=== PATIENT | female | born 1990 | race American Indian/Alaskan Native ===

== ENCOUNTER 2020-11-15 05:07 | Emergency (ER) | payer MEDICAID ==
--- NOTE | 2020-11-15 06:23 | EDM.PDOCBH ---
<Cassius Lord - Last Filed: 11/15/20 06:17> ED HPI GENERAL MEDICAL PROBLEM - General Chief Complaint: Behavioral/Psych Stated Complaint: MED MISHAP Time Seen by Provider: 11/15/20 06:00 Source of Information: Reports: Patient History Limitations: Reports: No Limitations - History of Present Illness INITIAL COMMENTS - FREE TEXT/NARRATIVE: Sallie is a 29 y F, who came in because of an overdose on Trazodone.She believes she took over 12 tabs of 100 mg tablets,of her boyfriend's prescription,in an effort to hard herself. She says she was frustrated with her boyfriend,who is not working,and living off of her. She definitely had intention of suicide,as she says she wrote a suicide note. She cut her self with a sharp object on the right thigh.She has a h/o MDD,although she does not take the Meds prescribed to her,and has no stable psychiatric care. Has 3 previous admissions to a mental health facility in [facility],the last time being about 1-2 years ago. - Related Data Allergies Allergy/AdvReac Type Severity Reaction Status Date / Time No Known Allergies Allergy Verified 11/15/20 05:31 Home Meds: Home Meds NK [No Known Home Meds] 11/15/20 [History] Past Medical History Gastrointestinal History: Reports: GERD Psychiatric History: Reports: Suicide Attempt, Suicidal Ideation Social & Family History - Tobacco Use Tobacco Use Status *Q: Current Every Day Tobacco User Years of Tobacco use: 10 Packs/Tins Daily: 0.5 - Recreational Drug Use Recreational Drug Use: No ED ROS GENERAL - Review of Systems Review Of Systems: Comprehensive ROS is negative, except as noted in HPI. ED EXAM, BEHAVIORAL HEALTH - Physical Exam Exam: See Below Exam Limited By: No Limitations General Appearance: Alert, WD/WN, No Apparent Distress Eye Exam: Left Eye: EOMI, Bilateral Eye: PERRL Ears: Normal External Exam Throat/Mouth: Normal Inspection Cardiovascular: Normal Peripheral Pulses Extremities: Normal Inspection, Other (2 lacerations to the right thigh. 5 cm & 3 cm.) Neurological: Alert Psychiatric: Alert, Normal Affect, Normal Cognition, Normal Mood Skin Exam: Warm, Dry ED Add Procedures - Additional/Other Procedure(s) Procedure(s) (Free Text): I used svetlana on the 5 cm laceration,after local anesthesia. Then Dermabond on the 3 cm laceration. #1 Interpretation EKG Date: 11/15/20 Time: 05:31 Rhythm: NSR Dawson: Normal P-Wave: Present ST-T: Normal QT: Prolonged Comparison: NA - No Prior EKG Departure - Departure Disposition: DC/Tfer to Psych Hosp/Unit 65 Clinical Impression: Suicidal intent, Laceration Drug overdose Qualifiers: Encounter type: initial encounter Injury intent: intentional self-harm Qualified Code(s): T50.902A - Poisoning by unspecified drugs, medicaments and biological substances, intentional self-harm, initial encounter - Discharge Information Referrals: Steffi Valiente MD [Primary Care Provider] - Forms: ED Department Discharge Sepsis Event Note (ED) - Evaluation Sepsis Screening Result: No Definite Risk - Problem List & Annotations (1) Drug overdose SNOMED Code(s): 70804259 Code(s): T50.901A - POISONING BY UNSP DRUG/MEDS/BIOL SUBST, ACCIDENTAL, INIT Status: Acute Current Visit: Yes Qualifiers: Encounter type: initial encounter Injury intent: intentional self-harm Qualified Code(s): T50.902A - Poisoning by unspecified drugs, medicaments and biological substances, intentional self-harm, initial encounter (2) MDD (major depressive disorder) SNOMED Code(s): 032526523 Code(s): F32.9 - MAJOR DEPRESSIVE DISORDER, SINGLE EPISODE, UNSPECIFIED Status: Acute Current Visit: Yes Qualifiers: Major depression recurrence: recurrent Major depression episode severity: moderate (3) Suicidal intent SNOMED Code(s): 702206205, 940859385 Code(s): R45.851 - SUICIDAL IDEATIONS Status: Acute Current Visit: Yes (4) Laceration SNOMED Code(s): 306392029 Code(s): KZQ5671 - Status: Acute Current Visit: Yes - Problem List Review Problem List Initiated/Reviewed/Updated: Yes - Assessment/Plan Plan: I ordered CBC,CMP.TSH,ETOH,Acetaminophen and Salicylate levels.I put the lacerations together using svetlana and glue.I did consult [place] for screening and help with possible placement. <Trey Kebede - Last Filed: 11/16/20 07:07> #2 Interpretation EKG Date: 11/15/20 Time: 13:28 Rhythm: NSR Dawson: Normal P-Wave: Present QRS: Normal EKG Interpretation Comments: pt had low normal K and Mg, given KCl 20 meq PO and Mg 2 gm IV, repeat EKT with rate 85, QT 201, QTC 477 and borderline prolonged QT intervial, still nonspecific flattening of T waves diffusely with change, QTC is better #3 Interpretation EKG Date: 11/15/20 Time: 21:11 Rhythm: NSR Rate (Beats/Min): 94 Dawson: Normal P-Wave: Present QRS: Normal EKG Interpretation Comments: no change c/w previous, QT dec'd 401 to 383 now, QTc unchanged from 477 to 479 now, still nonspecific changes, no evidence of acute/ischemic changes #4 Interpretation EKG Date: 11/16/20 Time: 03:50 Rhythm: NSR Dawson: Normal P-Wave: Present QRS: Normal ST-T: Normal QT: Normal EKG Interpretation Comments: QT 427, QTc 444, no baseline artifact, SR, rate 65, still NSST change. EKG has improved after additional replacement of K and Mg. COURSE, BEHAVIORAL HEALTH COMP - Course Vital Signs: Last Vital Signs Temp 36.7 C 11/16/20 02:45 Pulse 78 11/16/20 02:45 Resp 15 11/16/20 02:45 BP 122/72 11/16/20 02:45 Pulse Ox 96 11/16/20 02:45 Orders, Labs, Meds: Active Orders 24 hr Category Date Time Status EKG Documentation Completion [RC] ASDIRECTED Care 11/15/20 11:48 Active EKG Documentation Completion [RC] ASDIRECTED Care 11/15/20 19:44 Active EKG Documentation Completion [RC] ASDIRECTED Care 11/15/20 22:58 Active EKG 12 Lead [EK] Routine Ther 11/15/20 11:47 Ordered EKG 12 Lead [EK] Routine Ther 11/15/20 19:43 Ordered EKG 12 Lead [EK] Routine Ther 11/15/20 22:56 Ordered Laboratory Tests 11/15/20 11/15/20 11/15/20 Range/Units 05:35 05:35 05:35 WBC 5.2 (3.0-10.3) x10-3/uL RBC 5.10 (3.60-5.20) x10(6)uL Hgb 13.7 (11.4-15.5) g/dL Hct 41.9 (34.2-48.2) % MCV 82.1 (76.7-100.5) fL MCH 26.8 (23.9-33.9) pg MCHC 32.7 (31.9-34.8) g/dL RDW 16.8 H (12.3-16.5) % Plt Count 310 (151-488) x10(3)uL MPV 6.3 L (7.1-12.4) fL Neut % (Auto) 52.3 (30.8-76.2) % Lymph % (Auto) 36.3 (18.4-52.1) % [place] % (Auto) 8.2 (4.4-15.7) % Eos % (Auto) 1.7 (0.6-8.1) % Baso % (Auto) 1.5 (0.2-1.5) % Neut # (Auto) 2.7 (1.5-6.3) x10-3/uL Lymph # (Auto) 1.9 (1.0-4.4) x10-3/uL [place] # (Auto) 0.4 (0.3-1.0) x10-3/uL Eos # (Auto) 0.1 (0.0-0.8) x10-3/uL Baso # (Auto) 0.1 (0.0-0.1) x10-3/uL Sodium 144 (135-145) mmol/L Potassium 3.5 (3.5-5.3) mmol/L Chloride 107 (100-110) mmol/L Carbon Dioxide 24 (21-32) mmol/L BUN 5 L (7-18) mg/dL Creatinine 0.8 (0.55-1.02) mg/dL Est Cr Clr Drug Dosing 94.21 mL/min Estimated GFR (MDRD) > 60 (>60) BUN/Creatinine Ratio 6.3 L (9-20) Glucose 113 (80-116) mg/dL Calcium 7.9 L (8.6-10.2) mg/dL Magnesium (1.8-2.5) mg/dL Total Bilirubin 0.4 (0.1-1.3) mg/dL AST 124 H (5-25) IU/L ALT 99 H (12-36) U/L Alkaline Phosphatase 130 H (56-112) IU/L Total Protein 8.1 H (6.0-8.0) g/dL Albumin 3.2 L (3.5-5.2) g/dL Globulin 4.9 g/dL Albumin/Globulin Ratio 0.7 TSH, Ultra Sensitive 2.50 (0.36-3.74) IU/mL Urine HCG, Qual (NEGATIVE) Salicylates 5.2 (<2.8) mg/dL Urine Opiates Screen (NEGATIVE) Ur Oxycodone Screen (NEGATIVE) Ur Propoxyphene Screen (NEGATIVE) Acetaminophen < 2 L (<2) ug/mL Ur Barbituates Screen (NEGATIVE) Ur Tricyclics Screen (NEGATIVE) Ur Phencyclidine Scrn (NEGATIVE) Ur Amphetamine Screen (NEGATIVE) Urine MDMA Screen (NEGATIVE) U Benzodiazepines Scrn (NEGATIVE) U Cocaine Metab Screen (NEGATIVE) U Marijuana (THC) Screen (NEGATIVE) Ethyl Alcohol 0.21 H* (<0.03) % SARS-CoV-2 RNA ([place]) (NEGATIVE) 11/15/20 11/15/20 11/15/20 Range/Units 05:35 07:05 07:05 WBC (3.0-10.3) x10-3/uL RBC (3.60-5.20) x10(6)uL Hgb (11.4-15.5) g/dL Hct (34.2-48.2) % MCV (76.7-100.5) fL MCH (23.9-33.9) pg MCHC (31.9-34.8) g/dL RDW (12.3-16.5) % Plt Count (151-488) x10(3)uL MPV (7.1-12.4) fL Neut % (Auto) (30.8-76.2) % Lymph % (Auto) (18.4-52.1) % [place] % (Auto) (4.4-15.7) % Eos % (Auto) (0.6-8.1) % Baso % (Auto) (0.2-1.5) % Neut # (Auto) (1.5-6.3) x10-3/uL Lymph # (Auto) (1.0-4.4) x10-3/uL [place] # (Auto) (0.3-1.0) x10-3/uL Eos # (Auto) (0.0-0.8) x10-3/uL Baso # (Auto) (0.0-0.1) x10-3/uL Sodium (135-145) mmol/L Potassium (3.5-5.3) mmol/L Chloride (100-110) mmol/L Carbon Dioxide (21-32) mmol/L BUN (7-18) mg/dL Creatinine (0.55-1.02) mg/dL Est Cr Clr Drug Dosing mL/min Estimated GFR (MDRD) (>60) BUN/Creatinine Ratio (9-20) Glucose (80-116) mg/dL Calcium (8.6-10.2) mg/dL Magnesium 1.9 (1.8-2.5) mg/dL Total Bilirubin (0.1-1.3) mg/dL AST (5-25) IU/L ALT (12-36) U/L Alkaline Phosphatase (56-112) IU/L Total Protein (6.0-8.0) g/dL Albumin (3.5-5.2) g/dL Globulin g/dL Albumin/Globulin Ratio TSH, Ultra Sensitive (0.36-3.74) IU/mL Urine HCG, Qual Negative (NEGATIVE) Salicylates (<2.8) mg/dL Urine Opiates Screen Negative (NEGATIVE) Ur Oxycodone Screen Negative (NEGATIVE) Ur Propoxyphene Screen Negative (NEGATIVE) Acetaminophen (<2) ug/mL Ur Barbituates Screen Negative (NEGATIVE) Ur Tricyclics Screen Negative (NEGATIVE) Ur Phencyclidine Scrn Negative (NEGATIVE) Ur Amphetamine Screen Negative (NEGATIVE) Urine MDMA Screen Negative (NEGATIVE) U Benzodiazepines Scrn Negative (NEGATIVE) U Cocaine Metab Screen Negative (NEGATIVE) U Marijuana (THC) Screen Negative (NEGATIVE) Ethyl Alcohol (<0.03) % SARS-CoV-2 RNA ([place]) (NEGATIVE) 11/15/20 Range/Units 07:05 WBC (3.0-10.3) x10-3/uL RBC (3.60-5.20) x10(6)uL Hgb (11.4-15.5) g/dL Hct (34.2-48.2) % MCV (76.7-100.5) fL MCH (23.9-33.9) pg MCHC (31.9-34.8) g/dL RDW (12.3-16.5) % Plt Count (151-488) x10(3)uL MPV (7.1-12.4) fL Neut % (Auto) (30.8-76.2) % Lymph % (Auto) (18.4-52.1) % [place] % (Auto) (4.4-15.7) % Eos % (Auto) (0.6-8.1) % Baso % (Auto) (0.2-1.5) % Neut # (Auto) (1.5-6.3) x10-3/uL Lymph # (Auto) (1.0-4.4) x10-3/uL [place] # (Auto) (0.3-1.0) x10-3/uL Eos # (Auto) (0.0-0.8) x10-3/uL Baso # (Auto) (0.0-0.1) x10-3/uL Sodium (135-145) mmol/L Potassium (3.5-5.3) mmol/L Chloride (100-110) mmol/L Carbon Dioxide (21-32) mmol/L BUN (7-18) mg/dL Creatinine (0.55-1.02) mg/dL Est Cr Clr Drug Dosing mL/min Estimated GFR (MDRD) (>60) BUN/Creatinine Ratio (9-20) Glucose (80-116) mg/dL Calcium (8.6-10.2) mg/dL Magnesium (1.8-2.5) mg/dL Total Bilirubin (0.1-1.3) mg/dL AST (5-25) IU/L ALT (12-36) U/L Alkaline Phosphatase (56-112) IU/L Total Protein (6.0-8.0) g/dL Albumin (3.5-5.2) g/dL Globulin g/dL Albumin/Globulin Ratio TSH, Ultra Sensitive (0.36-3.74) IU/mL Urine HCG, Qual (NEGATIVE) Salicylates (<2.8) mg/dL Urine Opiates Screen (NEGATIVE) Ur Oxycodone Screen (NEGATIVE) Ur Propoxyphene Screen (NEGATIVE) Acetaminophen (<2) ug/mL Ur Barbituates Screen (NEGATIVE) Ur Tricyclics Screen (NEGATIVE) Ur Phencyclidine Scrn (NEGATIVE) Ur Amphetamine Screen (NEGATIVE) Urine MDMA Screen (NEGATIVE) U Benzodiazepines Scrn (NEGATIVE) U Cocaine Metab Screen (NEGATIVE) U Marijuana (THC) Screen (NEGATIVE) Ethyl Alcohol (<0.03) % SARS-CoV-2 RNA ([place]) Negative (NEGATIVE) Medications Discontinued Medications Generic Name Dose Route Start Last Admin Trade Name Freq PRN Reason Stop Dose Admin Magnesium Sulfate 2 gm/ Premix 50 mls @ 12.5 mls/hr 11/15/20 11:47 11/15/20 12:23 IV 11/15/20 15:46 12.5 mls/hr ONETIME ONE Administration Magnesium Sulfate 2 gm/ Premix 50 mls @ 12.5 mls/hr 11/15/20 23:19 11/15/20 23:26 IV 11/16/20 03:18 12.5 mls/hr ONETIME ONE Administration Lorazepam 0.5 mg 11/15/20 22:55 11/15/20 23:26 Lorazepam 0.5 Mg Tab PO 11/15/20 22:56 0.5 mg ONETIME ONE Administration Potassium Chloride 40 meq 11/15/20 11:00 11/15/20 11:03 Potassium Chloride 20 Meq Tab.Er PO 11/15/20 11:01 40 meq ONETIME ONE Administration Potassium Chloride 40 meq 11/15/20 22:55 11/15/20 23:26 Potassium Chloride 20 Meq Tab.Er PO 11/15/20 22:56 40 meq ONETIME ONE Administration Re-Assessment/Re-Exam: 72-hour hold papers signed [facility] is looking for inpt admission ethanol level 210, will be less than 100 after 11 AM this morning, pt admits to drinking alcohol 2x/m, however her labs strongly suggest that she is a heavy drinker and abuses alcohol on a frequent if not daily basis (low BUN, inc'd LFTs) Medical Clearance: 11/15/20 13:45 pt has been cleared by poison control (MARU Duggan spoke with them just now) pt is medically cleared from a physician and nursing perspective as well The QTC has improved after KCl 40 meq PO and Mg 2 gm IV given from 499 to 477. There is no baseline EKG so it is unclear if the trazodone may have slightly prolonged the original QTC. Nevertheless, the trazadone dose has peaked and the serum level is dropping. There are no additional cardiac or medical concerns, hence the medical clearance. Trazodone has a half life of 6 hours. It is now 9 hours since pt presented to the ED, which means that pt is 1.5 half lives since presentation. 11/16/20 03:54 [facility] had open beds but was unwilling to accept in transfer yesterday evening as they said pt needed a QTc less than 270 and requested another EKG this morning. Late yesterday evening pt given a second dose of KCL 40 meq and Mg 2 gm to address potential electrolyte issues, as well as lorazepam 0.5 mg PO to help with sleep. Pt is now near 4 half lives since presentation to the ED. She has had no cardiopulmonary sxs while in the ED. 11/16/20 04:02 4th EKG now shows SR, rate 65, NSST changes that have improved after K and Mg replacement, QT 427, QTc 444. Pt with QTc that is now well under the cut off of 470 that [facility] has requested. Pt remains medically cleared. Will send new EKG to [facility] for their review. 11/16/20 07:[address] Pack, EMS just arrived and is loading pt Departure - Departure Time of Disposition: 13:51 Condition: Fair - Discharge Information *PRESCRIPTION DRUG MONITORING PROGRAM REVIEWED*: Not Applicable *COPY OF PRESCRIPTION DRUG MONITORING REPORT IN PATIENT SEBAS: Not Applicable Sepsis Event Note (ED) - Focused Exam Vital Signs: Vital Signs Temp Pulse Resp BP Pulse Ox 11/16/20 02:45 36.7 C 78 15 122/72 96 11/15/20 23:30 90 19 125/71 11/15/20 23:00 83 18 114/69 11/15/20 22:30 85 19 128/71 11/15/20 22:00 85 21 H 138/78 11/15/20 21:30 86 22 H 138/80 11/15/20 21:00 100 20 132/76 11/15/20 20:30 98 20 134/75 11/15/20 20:00 99 19 127/76 11/15/20 19:30 97 20 139/72 - My Orders Last 24 Hours: My Active Orders 11/15/20 11:47 EKG 12 Lead [EK] Routine 11/15/20 11:48 EKG Documentation Completion [RC] ASDIRECTED 11/15/20 19:43 EKG 12 Lead [EK] Routine 11/15/20 19:44 EKG Documentation Completion [RC] ASDIRECTED 11/15/20 22:56 EKG 12 Lead [EK] Routine 11/15/20 22:58 EKG Documentation Completion [RC] ASDIRECTED - Assessment/Plan Last 24 Hours: My Active Orders 11/15/20 11:47 EKG 12 Lead [EK] Routine 11/15/20 11:48 EKG Documentation Completion [RC] ASDIRECTED 11/15/20 19:43 EKG 12 Lead [EK] Routine 11/15/20 19:44 EKG Documentation Completion [RC] ASDIRECTED 11/15/20 22:56 EKG 12 Lead [EK] Routine 11/15/20 22:58 EKG Documentation Completion [RC] ASDIRECTED
[2020-11-15 07:42] LABS: ACETAMINOPHEN < 2 ug/mL (<2)
[2020-11-15] MEDS ORDERED: Potassium Chloride 20 MEQ Tab.ER PO ONE ×2 (11:00→22:55)
[2020-11-15] MEDS ORDERED: Magnesium Sulfate/Water 2 GM in Premix Bag 1 BAG IV ONE ×2 (11:47→23:19)
[2020-11-15] MEDS ORDERED: LORazepam 0.5 MG Tab PO ONE (22:55)
== END 2020-11-16 07:08 ==
LOC: FB.ED 05:07
DX: T43.212A Poisoning by selective serotonin and norepinephrine reuptake inhibitors, intentional self-harm, initial encounter (principal); F32.9 Major depressive disorder, single episode, unspecified; S71.111A Laceration without foreign body, right thigh, initial encounter; Z20.822 Contact with and (suspected) exposure to COVID-19; Z72.0 Tobacco use; W26.9XXA Contact with unspecified sharp object(s), initial encounter
CPT/HCPCS: 12004; 36415; 80053; 80143; 80179; 80305; 80307; 81025; 83735; 84443; 85025; 87635; 93005; 96365; 96366; 99285; A9270; J3475; U0002